=== PATIENT | female | born 1940 | race Caucasian/White ===

== ENCOUNTER 2017-11-09 09:22 | Outpatient (CLI) | payer OTHER ==
[~2017-11-09 09:22] MED LIST: XOPENEX0.63 MG/3
== END 2017-11-09 09:32 | disposition home or self-care (01) ==
LOC: NUCLEAR 09:22
DX: Q62.11 Congenital occlusion of ureteropelvic junction (principal)
CPT/HCPCS: 78708; A9539; J1940

== ENCOUNTER 2018-12-15 12:07 | Outpatient (CLI) | payer OTHER | END 2018-12-15 12:58 | disposition home or self-care (01) | LOC: LAB 12:07 | DX: N30.00 Acute cystitis without hematuria (principal); B95.2 Enterococcus as the cause of diseases classified elsewhere ==

== ENCOUNTER 2019-01-02 11:39 | Inpatient (IN) | payer OTHER ==
[~2019-01-02] VITALS: Ht 182.9 cm; Wt 61.7 kg
[2019-01-02] MEDS ORDERED: PROTONIX20 MG (12:50)
== END 2019-01-10 11:45 | disposition home or self-care (01) | DRG 660 ==
LOC: ER 11:39 → SURG 12:53
PROVIDERS: ADMIT Urology
PROC: BT1FYZZ Fluoroscopy of Left Kidney, Ureter and Bladder using Other Contrast (ICD-10-PCS; 2019-01-03)
PROC: 02HV33Z Insertion of Infusion Device into Superior Vena Cava, Percutaneous Approach (ICD-10-PCS; 2019-01-03)
PROC: 0T778DZ Dilation of Left Ureter with Intraluminal Device, Via Natural or Artificial Opening Endoscopic (ICD-10-PCS; principal; 2019-01-03 07:00)
DX: N13.5 Crossing vessel and stricture of ureter without hydronephrosis (principal); N10 Acute pyelonephritis; N39.0 Urinary tract infection, site not specified; Z88.0 Allergy status to penicillin; Z88.2 Allergy status to sulfonamides; B96.29 Other Escherichia coli [E. coli] as the cause of diseases classified elsewhere; I10 Essential (primary) hypertension; B96.1 Klebsiella pneumoniae [K. pneumoniae] as the cause of diseases classified elsewhere; I49.3 Ventricular premature depolarization; F41.3 Other mixed anxiety disorders

== ENCOUNTER → 2019-05-11 08:41 | Outpatient (CLI) | payer OTHER ==
[~2019-05-11 08:41] MED LIST changes: +PROTONIX20 MG
== END | disposition home or self-care (01) ==
LOC: LAB 08:41
DX: N30.00 Acute cystitis without hematuria (principal); B96.29 Other Escherichia coli [E. coli] as the cause of diseases classified elsewhere

== ENCOUNTER 2020-02-09 11:34 | Outpatient (CLI) | payer OTHER | END 2020-02-09 14:42 | disposition home or self-care (01) | LOC: TOM 11:34 | PROVIDERS: ATTEND Internal Medicine Cardiovascular Disease | DX: J44.9 Chronic obstructive pulmonary disease, unspecified (principal); M46.47 Discitis, unspecified, lumbosacral region; M19.90 Unspecified osteoarthritis, unspecified site ==

== ENCOUNTER 2023-08-23 11:35 | Outpatient (CLI) | payer OTHER | END 2023-08-23 11:51 | disposition home or self-care (01) | LOC: RAD 11:35 | PROVIDERS: ATTEND Internal Medicine Cardiovascular Disease | DX: J44.9 Chronic obstructive pulmonary disease, unspecified (principal); J11.1 Influenza due to unidentified influenza virus with other respiratory manifestations; Z88.0 Allergy status to penicillin; Z88.2 Allergy status to sulfonamides; Z91.013 Allergy to seafood ==

== ENCOUNTER 2024-06-04 10:48 | Outpatient (CLI) | payer OTHER | END 2024-06-04 10:55 | disposition home or self-care (01) | LOC: RAD 10:48 | PROVIDERS: ATTEND Internal Medicine Cardiovascular Disease | DX: J44.9 Chronic obstructive pulmonary disease, unspecified (principal); J11.1 Influenza due to unidentified influenza virus with other respiratory manifestations ==